=== PATIENT | female | born 1960 | race Two or more races ===

== ENCOUNTER 2023-03-23 00:35 | Emergency (ER) | payer BC ==
[~2023-03-23] VITALS: Ht 165.1 cm; Wt 68.0 kg
[2023-03-23] MEDS ORDERED: JARDIANCE10 MG (00:52)
[2023-03-23] MEDS ORDERED: COZAAR25 MG (00:52)
[2023-03-23] MEDS ORDERED: NATEGLINIDE60 MG PO (00:52)
[2023-03-23] MEDS ORDERED: ECOTRIN81 MG (00:52)
[2023-03-23] MEDS ORDERED: GABAPENTIN300 MG (00:53)
[2023-03-23] MEDS ORDERED: NIACOR500 MG (00:53)
[2023-03-23] MEDS ORDERED: JANUMET XR 1001 EACH (00:53)
[2023-03-23] MEDS ORDERED: OMEGA 3 1,0001 EACH (00:53)
[2023-03-23] MEDS ORDERED: TRAZODONE HCL100 MG (00:54)
[2023-03-23] MEDS ORDERED: RIZATRIPTAN10 M1 (00:56)
[2023-03-23] MEDS ORDERED: [UNRECOGNIZED DRUG - OTHER] (00:57)
== END 2023-03-23 08:16 ==
LOC: ER 00:35
PROVIDERS: General Practice
DX: R55 Syncope and collapse (principal); Z91.041 Radiographic dye allergy status

== ENCOUNTER 2023-04-01 11:15 | Emergency (ER) | payer BC ==
[~2023-04-01] VITALS: Ht 165.1 cm; Wt 63.5 kg
[~2023-04-01 11:15] MED LIST: COZAAR25 MG; ECOTRIN81 MG; GABAPENTIN300 MG; JANUMET XR 1001 EACH; JARDIANCE10 MG; NATEGLINIDE60 MG PO; NIACOR500 MG; OMEGA 3 1,0001 EACH; RIZATRIPTAN10 M1; TRAZODONE HCL100 MG; [UNRECOGNIZED DRUG - OTHER]
[2023-04-01] MEDS ORDERED: JANUMET XR 1001 EACH (12:04)
== END 2023-04-01 15:05 | disposition home or self-care (01) ==
LOC: ER 11:15
PROVIDERS: General Practice
DX: R42 Dizziness and giddiness (principal); E11.9 Type 2 diabetes mellitus without complications; Z79.84 Long term (current) use of oral hypoglycemic drugs; I10 Essential (primary) hypertension; Z91.041 Radiographic dye allergy status